=== PATIENT | male | born 1995 | race Two or more races ===

== ENCOUNTER 2016-12-10 01:30 | Emergency (ER) | payer SELFPAY ==
[~2016-12-10] VITALS: Ht 162.6 cm; Wt 72.6 kg
[2016-12-10 02:28] LABS: Urine RBC None Seen /hpf (0 - 3)
[2016-12-10 02:37] LABS: Basophils # (auto) 0 uL; Basophils % (auto) 0.2 % (0.0-2.0); Eosinophils # (auto) 0 uL; Eosinophils % (auto) 0.4 % (0.0-7.0); Hematocrit 43.3 % (41.0-53.0); Hemoglobin 14.5 g/dL (13.5-17.5); Lymphocytes # (auto) 4.2 uL; Mean Corpuscular Hemoglobin 30.3 pg (28.0-32.0); Mean Corpuscular Hgb Conc. 33.5 g/dL (32.0-36.0); Mean Corpuscular Volume 90.4 fL (80.0-100.0); Monocytes # (auto) 0.7 uL; Monocytes % (auto) 7.2 % (0.0-12.0); Neutrophils % (auto) 50.2 % (37.0-80.0); Platelet Count (auto) 407 10^3/uL (140-450); Red Cell Distribution Width 12.9 % (11.6-16.0)
[2016-12-10 02:41] LABS: Urine Bilirubin Negative (Negative); Urine Blood Negative /uL (Negative); Urine Color Colorless (Yellow); Urine Glucose Normal (Normal); Urine Ketone Negative (Negative); Urine Nitrite Negative (Negative); Urine Urobilinogen Normal (Negative); Urine pH 6.5 (5.0-8.0)
[2016-12-10 02:48] LABS: Albumin 3.8 g/dL (3.4-5.0); BUN/Creatinine Ratio 9.5; Calcium 8.3 mg/dL (8.5-10.1); Potassium 3.5 mmol/L (3.5-5.1)
[2016-12-10 02:57] LABS: Bilirubin, Total 0.2 mg/dL (0.2-1.0); Total Protein 7.4 g/dL (6.4-8.2)
[2016-12-10 03:01] LABS: INR 0.96 (0.9-1.15); Partial Thromboplastin Time 26.2 sec (22.64-33.71); Prothrombin Time 10.4 sec (9.37-12.3)
[2016-12-10] MEDS ORDERED: MVI in SODIUM CHLORIDE 0.9% 1,010 ML IV ONE (03:09)
[2016-12-10] MEDS ORDERED: THIAMINE HCL 100 MG/ML 2ML VIAL IV ONE (03:15)
[2016-12-10] MEDS: MAGNESIUM SULFATE 1GM/100ML 100 ML IV SCH ×2 (03:40→04:29)
[2016-12-10 04:44] VITALS: BP 142/83
== END 2016-12-10 05:44 | disposition home or self-care (01) ==
LOC: ER 01:31
DX: G92 Toxic encephalopathy (principal); F10.129 Alcohol abuse with intoxication, unspecified; R10.13 Epigastric pain; F19.10 Other psychoactive substance abuse, uncomplicated; V49.40XA Driver injured in collision with unspecified motor vehicles in traffic accident, initial encounter; Y93.89 Activity, other specified; Y99.8 Other external cause status; Y92.89 Other specified places as the place of occurrence of the external cause
CPT/HCPCS: 36415; 74176; 80053; 80320; 81001; 85025; 85610; 85730; 96365; 96366; 96375; 99285; G0434; J3411; J3475; J7030

== ENCOUNTER 2024-02-14 17:15 | Emergency (ER) | payer SELFPAY ==
[~2024-02-14] VITALS: Ht 165.1 cm; Wt 83.3 kg
[2024-02-14 19:00] LABS: Basophils # (auto) 0 10 ^3/uL (0-0.2); Basophils % (auto) 0.4 % (0.0-2.0); Eosinophils # (auto) 0 10 ^3/uL (0-0.8); Eosinophils % (auto) 0.3 % (0.0-7.0); Hematocrit 44.2 % (41.0-53.0); Hemoglobin 14.9 g/dL (13.5-17.5); Lymphocytes # (auto) 1.6 10 ^3/uL (0.4-5.4); Lymphocytes % (auto) 28.4 % (10.0-50.0); Mean Corpuscular Hemoglobin 31.4 pg (28.0-32.0); Mean Corpuscular Hgb Conc. 33.8 g/dL (32.0-36.0); Mean Corpuscular Volume 92.7 fL (80.0-100.0); Monocytes # (auto) 0.5 10 ^3/uL (0-1.3); Monocytes % (auto) 8.4 % (0.0-12.0); Neutrophils # (auto) 3.4 10 ^3/uL (1.6-8.6); Neutrophils % (auto) 62.5 % (37.0-80.0); Nucleated Red Blood Cells % 0.1 %; Red Blood Cells 4.76 10^6/uL (4.5-5.90); Red Cell Distribution Width 13.9 % (11.8-14.3); White Blood Cell 5.5 10^3/uL (4.4-10.8)
[2024-02-14 19:12] LABS: Urine Blood TRACE /uL (Negative); Urine Clarity Clear (Clear); Urine Color Yellow (Yellow); Urine Protein, UAD 1+ (Negative); Urine Specific Gravity 1.029 (1.001-1.035); Urine Urobilinogen Normal (Negative); Urine pH 6.5 (5.0-9.0)
[2024-02-14 19:22] LABS: Alanine Aminotransferase 183 U/L (7-40); Albumin 4.8 g/dL (3.2-4.8); Alkaline Phosphatase 100 U/L (46-116); Anion Gap 8 (5-15); Aspartate Aminotransferase 276 U/L (13-40); BUN/Creatinine Ratio 7.6 (10.0-20.0); Bilirubin, Total 0.7 mg/dL (0.2-1.0); Blood Urea Nitrogen 7 mg/dL (9-23); Calcium 9.9 mg/dL (8.5-10.1); Carbon Dioxide 28 mmol/L (20-30); Chloride 106 mmol/L (98-107); Glucose 96 mg/dL (74-106); Magnesium 1.8 mg/dL (1.6-2.6); Potassium 4.5 mmol/L (3.5-5.1); Sodium 142 mmol/L (136-145); Total Protein 7.5 g/dL (5.7-8.2)
[2024-02-14] MEDS ORDERED: CHL25C GT (19:35)
[2024-02-14] MEDS ORDERED: ZOFR4T PO (19:35)
[2024-02-14] MEDS: ONDANSETRON ODT 4 MG TAB PO ONE (21:22)
[2024-02-14] MEDS: chlordiazePOXIDE HCL 25 MG CAP PO ONE (21:22)
[2024-02-14 21:24] VITALS: RESP 19; TEMP 98.9; O2SAT 99
[2024-02-14 22:09] VITALS: BP 142/105; PULSE 95
== END 2024-02-14 22:10 | disposition home or self-care (01) ==
LOC: ER 17:15
DX: R10.13 Epigastric pain (principal); F10.10 Alcohol abuse, uncomplicated; Z90.49 Acquired absence of other specified parts of digestive tract; Y90.9 Presence of alcohol in blood, level not specified
CPT/HCPCS: 36415; 74176; 80053; 81003; 83735; 85025; 99284; Q0162

== ENCOUNTER 2025-09-06 07:11 | Inpatient (IN) | payer MEDICAID ==
[~2025-09-06] VITALS: Ht 162.6 cm; Wt 85.8 kg
[~2025-09-06 07:11] MED LIST: ZOFR4T PO
--- NOTE | 2025-09-06 07:23 | ED.PDOC ---
HPI Comments 29 year old male presents to the ED with a chief complaint of chest pain onset last night. Patient states he began experiencing chest pain, described as chest pressure, since last night and is also experiencing nausea, vomiting, chills. Patient has been under stress recently. Upon ED arrival patient was tachycardiac with a HR of 125. Denies numb ness/tingling, dizziness, shortness of breath, weakness, blurred vision, diarrhea, sore throat, fever. No other symptoms or modifying factors present at this time. Chief Complaint: Chest Pain Time Seen by MD: 07:20 Primary Care Provider: THIERNO Reviewed Notes: Medications, Allergies Allergies: Coded Allergies: NO KNOWN ALLERGIES (Unverified , 04/19/13) Home Meds Active Scripts Ondansetron Odt 4MG Tab (ZOFRAN PO) 4 Mg Tb, 4 MG PO TID for 7 Days, #21 TAB ODT TAB-DISSOLVE IN MOUTH, THEN SWALLOW Prov:VANNA DEGROOT MD 02/14/24 Information Source: Patient Mode of Arrival: Ambulatory Severity: Moderate Timing: Hours Duration: Since onset Prehospital treatment: None Quality: Pressure Onset: At Rest Cardiac Risk Factors: None PE Risk Factors: None History of: None Modifying Factors: Nothing Past Medical History PAST MEDICAL HISTORY: Denies Surgical History: Appendectomy Family History Family History: Unobtainable Social History Smoker: Non-Smoker Alcohol: Heavy Drugs: Denies Drug Use Lives In: Home Constitutional: reports: chills; denies: diaphoresis, fatigue, fever, malaise, sweats, weakness, others EENTM: denies: blurred vision, double vision, ear bleeding, ear discharge, ear drainage, ear pain, ear ringing, eye pain, eye redness, hearing loss, mouth pain, mouth swelling, nasal discharge, nose bleeding, nose congestion, nose pain, photophobia, tearing, throat pain, throat swelling, voice changes, others Respiratory: denies: cough, hemoptysis, orthopnea, SOB at rest, shortness of breath, SOB with excertion, stridor, wheezing, others Cardiovascular: reports: chest pain; denies: dizzy spells, diaphoresis, Dyspnea on exertion, edema, irregular heart beat, left arm pain, lightheadedness, pa lpitations, PND, syncope, others Gastrointestinal: reports: nausea, vomiting; denies: abdomen distended, abdominal pain, blood streaked bowels, constipated, diarrhea, dysphagia, difficulty swallowing, hematemesis, melena, poor appetite, poor fluid intake, rectal bleeding, rectal pain, others Genitourinary: denies: burning, dysuria, flank pain, frequency, hematuria, incontinence, penile discharge, penile sore, pain, testicle pain, testicle swelling, urgency, others Neurological: denies: dizziness, fainting, headache, left sided numbness, left sided weakness, numbness, paresthesia, pre-existing deficit, right sided numbness, right sided weakness, seizure, speech problems, tingling, tremors, weakness, others Musculoskeletal: denies: back pain, gout, joint pain, joint swelling, muscle pain, muscle stiffness, neck pain, others Integumetry: denies: bruises, change in color, change in hair/nails, dryness, laceration, lesions, lumps, rash, wounds, others Allergic/Immunocompromised: denies: Difficulty Healing, Frequent Infections, Hives, Itching, others Hematologic/Lymphatic: denies: anemia, blood clots, easy bleeding, easy bruising, swollen glands, others Endocrine: denies: excessive hunger, excessive sweating, excessive thirst, excessive urination, flushing, intolerance to cold, intolerance to heat, unex plained weight gain, unexplained weight loss, others Psychiatric: denies: anxiety, bipolar disorder, depression, hopeless, panic disorder, schizophrenia, sleepless, suicidal, others All Other Systems: Reviewed and Negative Physical Exam General Appearance: Moderate Distress, Normal HEENT: Normal ENT Inspection, Pharynx Normal, TMs Normal Neck: Full Range of Motion, Non-Tender, Normal, Normal Inspection Respiratory: Chest Non-Tender, Lungs Clear, No Accessory Muscle Use, No Respiratory Distress, Normal Breath Sounds Cardiovascular: No Edema, No JVD, No Murmur, No Gallop, Normal Peripheral Pulses, Tachycardia Breast Exam: Deferred Gastrointestinal: No Organomegaly, Non Tender, No Pulsatile Mass, Normal Bowel Sounds, Soft Genitalia: Deferred Pelvic: Deferred Rectal: Deferred Extremities: No calf tenderness, Normal capillary refill, Normal inspection, Normal range of motion, Non-tender, No pedal edema Musculoskeletal : Apperance: Normal Neurologic: Alert, wafer substrate tester II-XII nml as Tested, No Motor Deficits, Normal Affect, Normal Mood, No Sensory Deficits Cerebellar Function: Normal Reflexes: Normal Skin: Dry, Normal Color, Warm Peripheral Pulses: 3+ Radial (R), 3+ Radial (L) Lymphatic: No Adenopathy EKG EKG : Pulse Rate (adult): 125 Cardiac Rhythm: ST Was a procedure done? Was a procedure done?: No CP Differential Dx Differential Diagnosis: A-fib, A-Flutter, Angina, Anxiety / Panic Attack, Atrial Dysrhythmia, Electrolyte Disorder Differential Diagnosis: Chest Wall Pain X-Ray, Labs, Meds, VS Vital Signs Date Time Temp Pulse Resp B/P (MAP) Pulse Ox O2 Delivery O2 Flow Rate FiO2 09/06/25 08:16 116 09/06/25 08:08 97.4 116 12 138/72 (94) 99 97.4 09/06/25 07:23 125 09/06/25 07:13 97.3 125 20 144/112 98 97.3 09/06/25 07:11 125 Lab Test 09/06/25 08:06 09/06/25 07:57 09/06/25 07:12 Range/Units Troponin I High Sensitivity < 3 L < 3 L </=54 ng/L SARS-CoV-2 Antigen (Rapid) Negative NEGATIVE White Blood Count 7.1 4.4-10.8 10^3/uL Red Blood Count 5.36 4.5-5.90 10^6/uL Hemoglobin 16.6 13.5-17.5 g/dL Hematocrit 49.1 41.0-53.0 % Mean Corpuscular Volume 91.6 80.0-100.0 fL Mean Corpuscular Hemoglobin 31.0 28.0-32.0 pg Mean Corpuscular Hemoglobin Concent 33.8 32.0-36.0 g/dL Red Cell Distribution Width 14.5 H 11.8-14.3 % Platelet Count 412 140-450 10^3/uL Mean Platelet Volume 8.2 6.9-10.8 fL Neutrophils (%) (Auto) 66.8 37.0-80.0 % Lymphocytes (%) (Auto) 23.9 10.0-50.0 % Monocytes (%) (Auto) 8.5 0.0-12.0 % Eosinophils (%) (Auto) 0.1 0.0-7.0 % Basophils (%) (Auto) 0.7 0.0-2.0 % Neutrophils # (Auto) 4.8 1.6-8.6 10 ^3/uL Lymphocytes # (Auto) 1.7 0.4-5.4 10 ^3/uL Monocytes # (Auto) 0.6 0-1.3 10 ^3/uL Eosinophils # (Auto) 0 0-0.8 10 ^3/uL Basophils # (Auto) 0 0-0.2 10 ^3/uL Nucleated Red Blood Cells 0.2 % Sodium Level 143 136-145 mmol/L Potassium Level 3.6 3.5-5.1 mmol/L Chloride Level 102 98-107 mmol/L Carbon Dioxide Level 24 20-31 mmol/L Anion Gap 17 H 5-15 Blood Urea Nitrogen < 5 L 9-23 mg/dL Creatinine 1.20 0.700-1.30 mg/dL Glomerular Filtration Rate Calc 83 >90 mL/min BUN/Creatinine Ratio 4.2 L 10.0-20.0 Serum Glucose 143 H 74-106 mg/dL Calcium Level 10.2 8.7-10.4 mg/dL Magnesium Level 1.5 L 1.6-2.6 mg/dL Total Bilirubin 1.1 H 0.2-1.0 mg/dL Aspartate Amino Transferase (AST) 167 H 13-40 U/L Alanine Aminotransferase (ALT) 149 H 7-40 U/L Alkaline Phosphatase 96 46-116 U/L Total Protein 8.2 5.7-8.2 g/dL Albumin 5.1 H 3.2-4.8 g/dL Current Medications Medications (Trade) Dose Ordered Sig/Elidia Route Start Time Stop Time Status Last Admin Sodium Chloride 1,000 ml @ 1,000 mls/hr Q1H ONCE IV 09/06/25 07:15 09/06/25 08:14 DC 09/06/25 07:46 Lorazepam (Ativan Inj) 1 mg ONCE ONCE IV 09/06/25 07:30 09/06/25 07:31 DC 09/06/25 07:46 Patient alert. Complaining of nausea vomiting. Abdomen is soft nontender. Tachycardia. Blood pressure elevated. Denies any past medical history. No leg swelling. No shortness a breath. EKG reviewed sinus tachycardia. Explained to the patient. Continue monitoring. [address] [address] Ph: [phone] DIAGNOSTIC IMAGING Diagnostic Imaging Report : [id number] Signed PATIENT: LEOBARDO DIAZ ACCT: [id number] UNIT: [id number] : 1995 LOC: ER ROOM / BED: / AGE / SEX: 29 / M ADM STATUS: REG ER SERVICE 1 ORDERING PHYSICIAN: SURI CAPPS MD PROCEDURE(s): CXRP - CHEST PORTABLE REASON: chest pain ORDER NUMBER(s): [id number], ACCESSION NUMBER(s): [id number] XY CHEST PORTABLE, HISTORY: chest pain COMPARISON: XR CHEST 1 VIEW on DOS: 11/28/24, XR CHEST 1 VIEW on DOS: 10/04/23 XR CHEST 1 VIEW on DOS: 11/28/24, XR CHEST 1 VIEW on DOS: 10/04/23 TECHNICAL DATA: 1 view of the chest was obtained. FINDINGS: Lines and tubes: None Cardiomediastinal silhouette: normal Pulmonary vasculature: normal Lung expansion: normal Lung airspace: normal Lung interstitium: normal Pleura: normal Pneumothorax: no Bones: Unremarkable Other: no IMPRESSION: No acute intrathoracic abnormality. ATED BY: CHUY HADLEY MD DICTATED DATE/TIME: 09/06/25806 SIGNED BY: CHUY HADLEY MD SIGNED DATE/TIME: 09/06/25806 CC: Time of 1ST Reevaluation: 07:50 Reevaluation 1ST: Unchanged Patient Education/Counseling: Diagnosis, Treatment, Prognosis Family Education/Counseling: No Family Present SEPSIS Sepsis Screen Physician Orders Chest Portable (09/06/25 07:12) Troponin-I Hs (09/06/25 10:12) Electrocardigram (09/06/25 08:12) Electrocardigram (09/06/25 10:12) Urinalysis (09/06/25 07:12) Drug Screen (09/06/25 07:12) Vital Signs Date Time Temp Pulse Resp B/P (MAP) Pulse Ox O2 Delivery O2 Flow Rate FiO2 09/06/25 08:16 116 09/06/25 08:08 97.4 116 12 138/72 (94) 99 97.4 09/06/25 07:23 125 09/06/25 07:13 97.3 125 20 144/112 98 97.3 09/06/25 07:11 125 Laboratory Tests Test 09/06/25 07:12 White Blood Count 7.1 10^3/uL (4.4-10.8) Medications Medications Dose Ordered Sig/Elidia Route Start Time Stop Time Status Last Admin Dose Admin Lorazepam 1 mg ONCE ONCE IV 09/06/25 07:30 09/06/25 07:31 DC 09/06/25 07:46 Sodium Chloride 1,000 ml @ 1,000 mls/hr Q1H ONCE IV 09/06/25 07:15 09/06/25 08:14 DC 09/06/25 07:46 Departure 1 Departure Time of Disposition: 07:26 Impression: Primary Impression: Acute abdominal pain Additional Impressions: Liver disease Tachycardia Disposition: ADMITTED INPATIENT Admit to: Med Surg Condition: Guarded Critical Care Note Critical Care Time?: Yes (90 min-critical care time only) Stability Stability form required: No Heart Score Heart Score: Heart Score Response (Comments) Value History Slightly Suspicious 0 EKG Normal 0 Age <45 0 Risk Factors No known risk factors 0 Troponin Normal limit 0 Total 0 I personally scribed for SURI CAPPS MD ([email or web address]) on 09/06/25 at 07:23. Electronically submitted by Carley Miranda ([email or web address]). I personally scribed for SURI CAPPS MD ([email or web address]) on 09/06/25 at 09:16. Electronically submitted by Carley Miranda [email or web address]). SURI CAPPS MD Sep 06, 2025 07:23
[2025-09-06 07:35] LABS: Hematocrit 49.1 % (41.0-53.0); Hemoglobin 16.6 g/dL (13.5-17.5); Mean Corpuscular Hemoglobin 31.0 pg (28.0-32.0); Mean Corpuscular Volume 91.6 fL (80.0-100.0); Nucleated Red Blood Cells % 0.2 %
[2025-09-06] MEDS: LORazepam 2MG/ML-1ML VIAL IV ONE (07:46)
[2025-09-06] MEDS: SODIUM CHLORIDE 0.9% 1,000 ML IV ONE ×3 (07:46→13:00)
[2025-09-06 07:49] LABS: Alkaline Phosphatase 96 U/L (46-116); Anion Gap 17 (5-15); Calcium 10.2 mg/dL (8.7-10.4); Carbon Dioxide 24 mmol/L (20-31); Chloride 102 mmol/L (98-107); Potassium 3.6 mmol/L (3.5-5.1); Sodium 143 mmol/L (136-145); Total Protein 8.2 g/dL (5.7-8.2)
[2025-09-06 07:50] LABS: Alanine Aminotransferase 149 U/L (7-40); Albumin 5.1 g/dL (3.2-4.8); BUN/Creatinine Ratio 4.2 (10.0-20.0); Bilirubin, Total 1.1 mg/dL (0.2-1.0); Blood Urea Nitrogen < 5 mg/dL (9-23); Glucose 143 mg/dL (74-106); Magnesium 1.5 mg/dL (1.6-2.6)
--- NOTE | 2025-09-06 08:09 | DVH ---
XY CHEST PORTABLE, HISTORY: chest pain COMPARISON: XR CHEST 1 VIEW on DOS: 11/28/24, XR CHEST 1 VIEW on DOS: 10/04/23 XR CHEST 1 VIEW on DOS: 11/28/24, XR CHEST 1 VIEW on DOS: 10/04/23 TECHNICAL DATA: 1 view of the chest was obtained. FINDINGS: Lines and tubes: None Cardiomediastinal silhouette: normal Pulmonary vasculature: normal Lung expansion: normal Lung airspace: normal Lung interstitium: normal Pleura: normal Pneumothorax: no Bones: Unremarkable Other: no IMPRESSION: No acute intrathoracic abnormality.
--- NOTE | 2025-09-06 08:17 | ECG ---
[facility] Test Date: 2025-09-06 Test Time: 08:16:08 Pat Name: LEOBARDO DIAZ Department: Room: 0240 Gender: M Pan Dumper: BULL : 1995 Requested By: SURI CAPPS Order Number: [id number] Reading MD: Miah Haque Measurements Intervals [place] Rate: 116 P: 43 ND: 153 QRS: 11 QRSD: 94 T: 23 QT: 324 QTc: 451 Interpretive Statements Sinus tachycardia RSR' in V1 or V2, right VCD or RVH Abnormal inferior Q waves Borderline T abnormalities, anterior leads Electronically Signed On 09-08-2025 16:40:38 PST by Miah Haque Please click the below link to view image of tracing.
[2025-09-06 09:02] LABS: COVID19 ANTIGEN SOFIA FIA NEGATIVE (NEGATIVE)
--- NOTE | 2025-09-06 10:18 | DVH ---
INDICATION: gallbladder TECHNIQUE: Multiple real-time sonographic images were obtained of the right upper quadrant. COMPARISON: US ABDOMEN LIMITED on DOS: 11/28/24 FINDINGS: The liver demonstrates increased echotexture without focal mass lesions. The liver measures 17.9 cm. There is no intrahepatic or extrahepatic ductal dilatation. The common duct is not visualized The gallbladder is without evidence of stone or sludge. The gallbladder wall measures 0.2 cm and is within normal limits. Gallbladder polyp measures 0.7 cm. The right kidney measures 10.2 cm. The right kidney is normal in contour, size, and shape. The echogenicity is normal. There is no hydronephrosis. The pancreas is not well visualized due to overlying bowel gas. IMPRESSION: No sonographic evidence of gallstones or acute cholecystitis. Gallbladder polyp measures 0.7 cm. Hepatic steatosis and hepatomegaly. FOLLOW UP RECOMMENDATIONS: Low-risk polyps (pedunculated with a thick or wide stalk, or sessile): < 6 mm: no follow-up 7-9 mm follow-up ultrasound at 12 months 10-14 mm: follow-up ultrasound at 6, 12, 24, and 36 months vs surgical consult > 15 mm: surgical consult Belkys Obando, Yvrose C, Akash J et al. Management of Incidentally Detected Gallbladder Polyps: Society of Radiologists in Ultrasound Consensus Conference Recommendations. Radiology. 2021;:[id number].
[2025-09-06] MEDS ORDERED: ACETAMINOPHEN 325 MG TAB PO PRN (11:30)
[2025-09-06] MEDS ORDERED: DOCUSATE SOD 100 MG CAP PO PRN (11:30)
[2025-09-06] MEDS: HYDROcodone-ACET 5/325MG TAB PO PRN (11:43)
[2025-09-06 11:53] LABS: Amphetamine Screen, Urine Neg (NEGATIVE); Barbiturate Scree,Urine Neg (NEGATIVE); Benzodiazephine Screen, Urine Neg (NEGATIVE); Cannabinoid Screen, Urine Pos (NEGATIVE); Cocaine Screen, Urine Neg (NEGATIVE); Opiate Scree,Urine Neg (NEGATIVE); Phencyclidine Screen, Urine Neg (NEGATIVE); Urine Protein, UAD 1+ (Negative)
--- NOTE | 2025-09-06 11:53 | DVHHP2 ---
History of Present Illness Reason for Visit: Abdominal pain History of Present Illness Kp Castro is a 29-year-old male with no significant past medial history, who came to the hospital due to abdominal pain with associated nausea and vomiting. Patient states last night he started having chills, fever, and sweats about 1700. Then about 2100 he began having nausea and vomiting, and epigastric pain. His symptoms were not improving prompting him to come to the hospital. Past Surgical History: Appendectomy Smoke: <1 pack per day (Vape) ALCOHOL: occassional (3-4 drinks/week) Drugs: None Lives: with Family Domestic Violence: Neg Review of Systems Constitutional: Yes: Fever, Chills, Sweats; No: Weakness, Malaise, Other Eyes: No: Pain, Vision change, Conjunctivae inflammation, Eyelid inflammation, Other, Redness ENT: No: Ear pain, Ear discharge, Nose pain, Nose discharge, Nose congestion, Mouth pain, Mouth swelling, Throat pain, Throat swelling, Other Respiratory: No: Cough, Dry, Shortness of breath, SOB with excertion, Wheezing, Hemoptysis, Pleuritic Pain, Sputum, Wheezing, Other Cardiovascular: No: Chest Pain, Palpitations, Orthopnea, Paroxysmal Noc. Dyspnea, Edema, Lt Headedness, Other Gastrointestinal: Nausea, Vomiting, Abdominal Pain; No: Diarrhea, Constipation, Melena, Hematochezia, Other Genitourinary: No Dysuria, No Frequency, No Incontinence, No Hematuria, No Retention, No Other Musculoskeletal: No: other, neck pain, shoulder pain, arm pain, back pain, hand pain, leg pain, foot pain Skin: No: Rash, Lesions, Jaundice, Bruising, Other Neurological: No: Weakness, Numbness, Incoordination, Change in speech, Confusion, Seizures, Other Allergies: Coded Allergies: NO KNOWN ALLERGIES (Unverified , 04/19/13) Exam Vital Signs Vital Signs Date Time Temp Pulse Resp B/P (MAP) Pulse Ox O2 Delivery O2 Flow Rate FiO2 09/06/25 11:03 98.2 135 20 176/115 (135) 97 98.2 General Appearance: Alert, Oriented X3, Cooperative, mild distress HEENT: Atraumatic, PERRLA Respiratory: Clear to auscultation, Normal air movement Cardiovascular: Normal S1, Normal S2 Abdominal: Normal bowel sounds, Soft, Other (abdominal tenderness) Extremities: No clubbing, No cyanosis, No edema, Normal pulses Skin: No rashes, No breakdown, No significant lesion Neuro: Normal gait, Normal speech, Strength at 5/5 X4 ext, Normal tone Psych/Mental Status: Mental status NL, Mood NL Labs/Xrays Labs Test 09/06/25 11:12 09/06/25 08:06 09/06/25 07:57 09/06/25 07:12 Range/Units Lipase 51 12-53 U/L SARS-CoV-2 Antigen (Rapid) Negative NEGATIVE White Blood Count 7.1 4.4-10.8 10^3/uL Red Blood Count 5.36 4.5-5.90 10^6/uL Hemoglobin 16.6 13.5-17.5 g/dL Hematocrit 49.1 41.0-53.0 % Mean Corpuscular Volume 91.6 80.0-100.0 fL Mean Corpuscular Hemoglobin 31.0 28.0-32.0 pg Mean Corpuscular Hemoglobin Concent 33.8 32.0-36.0 g/dL Red Cell Distribution Width 14.5 H 11.8-14.3 % Platelet Count 412 140-450 10^3/uL Mean Platelet Volume 8.2 6.9-10.8 fL Neutrophils (%) (Auto) 66.8 37.0-80.0 % Lymphocytes (%) (Auto) 23.9 10.0-50.0 % Monocytes (%) (Auto) 8.5 0.0-12.0 % Eosinophils (%) (Auto) 0.1 0.0-7.0 % Basophils (%) (Auto) 0.7 0.0-2.0 % Neutrophils # (Auto) 4.8 1.6-8.6 10 ^3/uL Lymphocytes # (Auto) 1.7 0.4-5.4 10 ^3/uL Monocytes # (Auto) 0.6 0-1.3 10 ^3/uL Eosinophils # (Auto) 0 0-0.8 10 ^3/uL Basophils # (Auto) 0 0-0.2 10 ^3/uL Nucleated Red Blood Cells 0.2 % Sodium Level 143 136-145 mmol/L Potassium Level 3.6 3.5-5.1 mmol/L Chloride Level 102 98-107 mmol/L Carbon Dioxide Level 24 20-31 mmol/L Anion Gap 17 H 5-15 Blood Urea Nitrogen < 5 L 9-23 mg/dL Creatinine 1.20 0.700-1.30 mg/dL Glomerular Filtration Rate Calc 83 >90 mL/min BUN/Creatinine Ratio 4.2 L 10.0-20.0 Serum Glucose 143 H 74-106 mg/dL Calcium Level 10.2 8.7-10.4 mg/dL Magnesium Level 1.5 L 1.6-2.6 mg/dL Total Bilirubin 1.1 H 0.2-1.0 mg/dL Aspartate Amino Transferase (AST) 167 H 13-40 U/L Alanine Aminotransferase (ALT) 149 H 7-40 U/L Alkaline Phosphatase 96 46-116 U/L Total Protein 8.2 5.7-8.2 g/dL Albumin 5.1 H 3.2-4.8 g/dL SEPSIS Sepsis Screen Date sepsis recognized/suspect: Sep 06, 2025 Time Sepsis recognized/suspect: 0800 Recent Procedure: No On Antibiotic Therapy: No Respiratory Rate >20: No Heart Rate >90: Yes Temp<36 C (96.8 F) or >38.3 C: No SBP <90 or MAP <65 mmHG: No New Acute Mental Status Change: No Is the patient on CPAP, BIPAP,: No Physician Orders Chest Portable (09/06/25 07:12) Troponin-I Hs (09/06/25 10:12) Electrocardigram (09/06/25 08:12) Electrocardigram (09/06/25 10:12) Urinalysis (09/06/25 07:12) Drug Screen (09/06/25 07:12) Gallbladder (09/06/25 09:42) Vital Signs Date Time Temp Pulse Resp B/P (MAP) Pulse Ox O2 Delivery O2 Flow Rate FiO2 09/06/25 11:03 98.2 135 20 176/115 (135) 97 98.2 09/06/25 08:16 116 09/06/25 08:08 97.4 116 12 138/72 (94) 99 97.4 09/06/25 07:23 125 09/06/25 07:13 97.3 125 20 144/112 98 97.3 09/06/25 07:11 125 Laboratory Tests Test 09/06/25 07:12 White Blood Count 7.1 10^3/uL (4.4-10.8) Medications Medications Dose Ordered Sig/Elidia Route Start Time Stop Time Status Last Admin Dose Admin Lorazepam 1 mg ONCE ONCE IV 09/06/25 07:30 09/06/25 07:31 DC 09/06/25 07:46 1 MG Sodium Chloride 1,000 ml @ 1,000 mls/hr Q1H ONCE IV 09/06/25 07:15 09/06/25 08:14 DC 09/06/25 07:46 1,000 MLS/HR Assessment/Plan Assessment/Plan Assessment: Gastroenteritis, Dehydration, Hyperglycemia, Transaminitis, Plan: Admit to Med-Surg, IV antibiotics, IV hydration, Liver/gallbladder ultrasound, Clear liquid diet, advance as tolerated, Consider GI consult if symptoms continue, Plan discussed with: Patient Date of Service: Sep 06, 2025 Billing Provider: SHERRY VICK Common Visit Codes: [id number] INP/OBS CARE (MOD) SHERRY VICK Sep 06, 2025 11:53
[2025-09-06 15:20] VITALS: BP 164/108; PULSE 118; RESP 16; TEMP 98.3; O2SAT 97
[2025-09-06] MEDS: LISINOPRIL 5 MG TAB PO ONE (15:33)
[2025-09-06 16:52] VITALS: BP 127/91; PULSE 103; RESP 16; TEMP 99; O2SAT 98
[2025-09-06] MEDS: ONDANSETRON HCL 4 MG/2 ML VIAL IV PRN (18:40)
[2025-09-06 20:00] VITALS: PULSE 109; RESP 16; O2SAT 99
[2025-09-06 21:00] VITALS: BP 156/105; PULSE 109; RESP 15; TEMP 98.6; O2SAT 99
[2025-09-06] MEDS: hydrALAZINE HCL 20 MG/ML VL IV PRN (21:32)
[2025-09-07] VITALS (7 sets, daily range): BP systolic 116–145; BP diastolic 87–94; PULSE 89–106; RESP 15–18; TEMP 36.9; O2SAT 8–99
[2025-09-07 05:39] LABS: Hematocrit 40.4 % (41.0-53.0); Hemoglobin 13.7 g/dL (13.5-17.5); Mean Corpuscular Hemoglobin 31.3 pg (28.0-32.0); Mean Corpuscular Volume 92.0 fL (80.0-100.0); Nucleated Red Blood Cells % 0.2 %
[2025-09-07 05:53] LABS: Albumin 4.0 g/dL (3.2-4.8); Alkaline Phosphatase 69 U/L (46-116); Anion Gap 7 (5-15); BUN/Creatinine Ratio 6.6 (10.0-20.0); Carbon Dioxide 29 mmol/L (20-31); Chloride 103 mmol/L (98-107); Glucose 88 mg/dL (74-106); Sodium 139 mmol/L (136-145); Total Protein 6.5 g/dL (5.7-8.2)
[2025-09-07 05:57] LABS: Alanine Aminotransferase 88 U/L (7-40); Bilirubin, Total 2.6 mg/dL (0.2-1.0); Blood Urea Nitrogen 5 mg/dL (9-23); Calcium 8.5 mg/dL (8.7-10.4); Potassium 3.4 mmol/L (3.5-5.1)
[2025-09-07] MEDS: LISINOPRIL 5 MG TAB PO SCH (08:50)
--- NOTE | 2025-09-07 17:08 | DVHDS2 ---
Discharge Summary Date of Admission Sep 06, 2025 at 11:22 Date of Discharge: Sep 07, 2025 Labs/Diagnostic Data: Laboratory Results Test 09/07/25 05:14 09/06/25 11:09 09/06/25 08:06 09/06/25 07:57 White Blood Count 4.9 10^3/uL (4.4-10.8) Red Blood Count 4.39 10^6/uL (4.5-5.90) Hemoglobin 13.7 g/dL (13.5-17.5) Hematocrit 40.4 % (41.0-53.0) Mean Corpuscular Volume 92.0 fL (80.0-100.0) Mean Corpuscular Hemoglobin 31.3 pg (28.0-32.0) Mean Corpuscular Hemoglobin Concent 34.0 g/dL (32.0-36.0) Red Cell Distribution Width 14.1 % (11.8-14.3) Platelet Count 267 10^3/uL (140-450) Mean Platelet Volume 8.0 fL (6.9-10.8) Neutrophils (%) (Auto) 48.0 % (37.0-80.0) Lymphocytes (%) (Auto) 40.4 % (10.0-50.0) Monocytes (%) (Auto) 10.7 % (0.0-12.0) Eosinophils (%) (Auto) 0.5 % (0.0-7.0) Basophils (%) (Auto) 0.4 % (0.0-2.0) Neutrophils # (Auto) 2.4 10 ^3/uL (1.6-8.6) Lymphocytes # (Auto) 2.0 10 ^3/uL (0.4-5.4) Monocytes # (Auto) 0.5 10 ^3/uL (0-1.3) Eosinophils # (Auto) 0 10 ^3/uL (0-0.8) Basophils # (Auto) 0 10 ^3/uL (0-0.2) Nucleated Red Blood Cells 0.2 % Sodium Level 139 mmol/L (136-145) Potassium Level 3.4 mmol/L (3.5-5.1) Chloride Level 103 mmol/L (98-107) Carbon Dioxide Level 29 mmol/L (20-31) Anion Gap 7 (5-15) Blood Urea Nitrogen 5 mg/dL (9-23) Creatinine 0.76 mg/dL (0.700-1.30) Glomerular Filtration Rate Calc 123 mL/min (>90) BUN/Creatinine Ratio 6.6 (10.0-20.0) Serum Glucose 88 mg/dL (74-106) Calcium Level 8.5 mg/dL (8.7-10.4) Total Bilirubin 2.6 mg/dL (0.2-1.0) Aspartate Amino Transferase (AST) 72 U/L (13-40) Alanine Aminotransferase (ALT) 88 U/L (7-40) Alkaline Phosphatase 69 U/L (46-116) Total Protein 6.5 g/dL (5.7-8.2) Albumin 4.0 g/dL (3.2-4.8) Troponin I High Sensitivity < 3 ng/L (</=54) Lipase 51 U/L (12-53) SARS-CoV-2 Antigen (Rapid) Negative (NEGATIVE) Test 09/06/25 07:12 09/06/25 00:25 Magnesium Level 1.5 mg/dL (1.6-2.6) Urine Color Yellow (Yellow) Urine Clarity Clear (Clear) Urine pH 7.5 (5.0-9.0) Urine Specific [place] 1.022 (1.001-1.035) Urine Protein 1+ (Negative) Urine Ketones Trace (Negative) Urine Blood Negative /uL (Negative) Urine Nitrite Negative (Negative) Urine Bilirubin Negative (Negative) Urine Urobilinogen Normal mg/dL (Negative) Urine Leukocyte Esterase Negative /uL (Negative) Urine RBC 3 /hpf (0 - 3) Urine Microscopic WBC 1 /HPF (0-3) Urine Squamous Epithelial Cells Few /hpf (<5) Urine Bacteria None seen /hpf (None Seen) Urine Mucus Few (None Seen) Urine Glucose 2+ mg/dL (Normal) Urine Opiates Screen Neg (NEGATIVE) Urine Fentanyl Screen Neg (NEGATIVE) Urine Barbiturates Screen Neg (NEGATIVE) Urine Phencyclidine Screen Neg (NEGATIVE) Urine Amphetamines Screen Neg (NEGATIVE) Urine Benzodiazepines Screen Neg (NEGATIVE) Urine Cocaine Screen Neg (NEGATIVE) Urine Cannabinoids Screen Pos (NEGATIVE) Other Laboratory Tests 09/07/25 05:14 Brief Hx & Hospital Course: 29-year-old male with a known history of chronic tobacco use disorder presented to the hospital with the abdominal pain nausea and vomiting found to have acute viral gastroenteritis. Patient was eventually admitted. Patient was started on clear liquid diet and advanced to full liquid which he is currently tolerating well. Also patient was found to have incidental finding of 7 mm gallbladder polyp yearly screening with a 12 months has been recommended as per guidelines. Patient is currently being discharged under stable condition. Condition at Discharge: Stable Final Diagnosis/Problems List 1. Acute viral gastroenteritis 2. Abdominal pain nausea and vomiting secondary to 1. Resolved 3. Chronic tobacco use disorder, nicotine cessation counseling has been discussed 4. Incidental finding of 7 mm gallbladder polyp, yearly screening in one year with a repeat right upper quadrant abdominal ultrasound. Discharge Disposition: Home SNF Discharge Will this Physician continue t: No Discharge Instruct/Medications Diet: Cardiac 2g Na,low cholest Activity: No Restrictions, As Tolerated Follow Up/Referral: Please follow up with the PCP in 1-2 weeks Medications: Resume home medications. Continued Medications: Ondansetron Odt 4MG Tab (Zofran Po) 4 Mg Tb 4 MG PO TID for 7 Days, #21 TAB ODT TAB-DISSOLVE IN MOUTH, THEN SWALLOW Scheduled Ondansetron Odt 4MG Tab (Zofran Po), 4 MG PO TID Discharge Statement: "Patient was advised to return to the ER or call 911 if any headaches, dizziness, shortness of breath, chest pain, abdominal pain, bleeding, fevers, or worsening of medical condition. Patient was counseled about treatment plan, medications, possible side effects, patientverbalized understanding. All questions were answered to the best of my ability. This discharge took greater then 30 minutes in planning, reviewing documentation, counseling the patient, and discussing with other team members." ASSESSMENT ASSESSMENT Assessment 1. Acute viral gastroenteritis 2. Abdominal pain nausea and vomiting secondary to 1. Resolved 3. Chronic tobacco use disorder, nicotine cessation counseling has been discussed 4. Incidental finding of 7 mm gallbladder polyp, yearly screening in one year with a repeat right upper quadrant abdominal ultrasound. Date of Service: Sep 07, 2025 Billing Provider: NINO BOWERS MD Common Visit Codes: [id number] DISCH DAY >30min NINO BOWERS MD Sep 07, 2025 17:08
[2025-09-07] MEDS: POTASSIUM EFFERVESENT TAB 25 MEQ PO ONE (17:15)
== END 2025-09-07 18:35 | disposition home or self-care (01) | DRG 249 ==
LOC: ER 07:11 → OVERFLOW 11:22 → EAST 12:00
PROVIDERS: ADMIT Internal Medicine; ATTEND Internal Medicine
DX: A08.4 Viral intestinal infection, unspecified (principal); I16.0 Hypertensive urgency; K76.9 Liver disease, unspecified; E86.0 Dehydration; R73.9 Hyperglycemia, unspecified; Z20.822 Contact with and (suspected) exposure to COVID-19; F17.200 Nicotine dependence, unspecified, uncomplicated; R74.01 Elevation of levels of liver transaminase levels; Z90.49 Acquired absence of other specified parts of digestive tract; K82.4 Cholesterolosis of gallbladder
CPT/HCPCS: 36415; 71045; 76705; 80053; 80307; 81001; 83690; 83735; 84484; 85025; 87426; 93005; 96365; 96375; 99291; 99292; G0378; J2405; J3490